=== PATIENT | female | born 1995 | race Caucasian/White ===

== ENCOUNTER 2019-03-10 13:10 | Emergency (ER) | payer BC ==
--- NOTE | 2019-03-10 15:04 | UC ---
Lower Extremity/Ankle HPI - HPI Summary HPI Summary: Twisted R ankle this AM on a rock. - History of Current Complaint Chief Complaint: UCLowerExtremity Stated Complaint: ANKLE INJURY Time Seen by Provider: 03/10/19 14:16 Hx Obtained From: Patient Aggravating Factor(s): Standing Alleviating Factor(s): Nothing - Allergies/Home Medications Allergies/Adverse Reactions: Allergies Allergy/AdvReac Type Severity Reaction Status Date / Time No Known Allergies Allergy Verified 03/10/19 15:13 PMH/Surg Hx/FS Hx/Imm Hx Previously Healthy: Yes Endocrine History: Other - obesity Other History Of: Negative For: Anticoagulant Therapy - Surgical History Surgical History: Yes Surgery Procedure, Year, and Place: Left wrist- GANGLION CYST- 2007, RIGHT LAT. MALLEOLUS - Family History Known Family History: Positive: Non-Contributory - Social History Substance Use Type: None Review of Systems All Other Systems Reviewed And Are Negative: Yes Constitutional: Negative: Fever Skin: Negative: Rash, Bruising Musculoskeletal: Positive: Arthralgia - r ankle, Decreased ROM - r ankle. Negative: Edema, Myalgia Neurological: Negative: Weakness, Paresthesia, Numbness Physical Exam Triage Information Reviewed: Yes Appearance: Well-Appearing Vital Signs Reviewed: Yes Respiratory Exam: Normal Cardiovascular Exam: Normal Musculoskeletal: Positive: Strength Intact - r ankle, ROM Intact - r ankle, No Edema Skin: Negative: Other - no bruising Diagnostics - Radiology No standard instances Radiology Interpretation Completed By: Radiologist Summary of Radiographic Findings: IMPRESSION: VERY MILD SOFT TISSUE SWELLING OVERLYING THE FIBULAR MALLEOLUS WITHOUT RADIOGRAPHICALLY VISIBLE UNDERLYING FRACTURE OR DISLOCATION. If the patient's symptoms persist, follow-up imaging is recommended. Lower Extremity Course/Dx - Course Course Of Treatment: R ankle sprain after twisting her ankle on a rock. Imaging was requested by pt. and neg. for fx. Exam was unremarkable. Disc ways to support injured ankle and we CESAR wrapped today. - Differential Dx/Diagnosis Differential Diagnosis/HQI/PQRI: Sprain, Strain, Tenosynovitis Provider Diagnosis: Ankle sprain Discharge ED - Sign-Out/Discharge Documenting (check all that apply): Patient Departure All imaging exams completed and their final reports reviewed: No Studies - Discharge Plan Condition: Good Disposition: HOME Patient Education Materials: Ankle Sprain (ED) Referrals: Tasha Norton NP [Primary Care Provider] - Additional Instructions: pLEASE WEAR supportive shoes until ankle heals. - Billing Disposition and Condition Condition: GOOD Disposition: Home - Attestation Statements Provider Attestation: I was available for consult. This patient was seen by the REY. The patient was not presented to , seen by or examined by me -Kary Allen MD
[2019-03-10 15:14] VITALS: BP 117/72
== END 2019-03-10 15:22 | disposition home or self-care (01) ==
LOC: UCEAST 13:10
DX: S93.402A Sprain of unspecified ligament of left ankle, initial encounter (principal); X50.0XXA Overexertion from strenuous movement or load, initial encounter; Y92.9 Unspecified place or not applicable; E66.9 Obesity, unspecified
CPT/HCPCS: 99212; G0463